=== PATIENT | female | born 1975 | race American Indian/Alaskan Native ===

== ENCOUNTER 2017-04-30 10:48 | Emergency (ER) | payer SELFPAY ==
--- NOTE | 2017-04-30 14:03 | Emergency Department Report ---
ED General Adult HPI - General Chief complaint: Upper Respiratory Infection Stated complaint: FLU LIKE SYMPTOMS Time Seen by Provider: 04/30/17 13:56 Source: patient Mode of arrival: Ambulatory Limitations: No Limitations - History of Present Illness Initial comments: Patient is a 41-year-old female most past medical history who presents with stuffy nose cough and nasal congestion going on for last couple days. Patient states that she is having throat pain and facial pain that is a 3 out of 10 she says is an achy type of pain in her last night and then she has nasal congestion and stuffy nose. Patient also states that she's been feeling hot and cold. Patient has not had a documented elevation in temperature however she feels like she has a fever. Patient has no nausea no vomiting. Nothing makes her symptoms better or worse. Patient works as a [employer]. - Related Data Previous Rx's Medication Instructions Recorded Last Taken Type Acetaminophen [Tylenol Extra 500 mg PO Q6H #30 tablet 04/30/17 Unknown Rx Strength] Amoxicillin [Amoxicillin TAB] 875 mg PO BID #10 tablet 04/30/17 Unknown Rx Allergies Allergy/AdvReac Type Severity Reaction Status Date / Time aspirin Allergy Unknown Verified 04/30/17 11:00 ED Review of Systems ROS: Stated complaint: FLU LIKE SYMPTOMS Other details as noted in HPI Constitutional: denies: chills, fever Eyes: denies: eye pain, eye discharge, vision change ENT: throat pain, congestion. denies: ear pain Respiratory: denies: cough, shortness of breath, wheezing Cardiovascular: denies: chest pain, palpitations Endocrine: no symptoms reported Gastrointestinal: denies: abdominal pain, nausea, diarrhea Genitourinary: denies: urgency, dysuria, discharge Musculoskeletal: denies: back pain, joint swelling, arthralgia Skin: denies: rash, lesions Neurological: denies: headache, weakness, paresthesias Psychiatric: denies: anxiety, depression Hematological/Lymphatic: denies: easy bleeding, easy bruising ED Past Medical Hx - Past Medical History Previous Medical History?: No - Surgical History Past Surgical History?: Yes Additional Surgical History: right foot surgery as a child - Social History Smoking Status: Never Smoker Substance Use Type: None - Medications Home Medications: Home Medications Medication Instructions Recorded Confirmed Last Taken Type Acetaminophen [Tylenol Extra 500 mg PO Q6H #30 tablet 04/30/17 Unknown Rx Strength] Amoxicillin [Amoxicillin TAB] 875 mg PO BID #10 tablet 04/30/17 Unknown Rx ED Physical Exam - General Limitations: No Limitations General appearance: alert, in no apparent distress - Head Head exam: Present: atraumatic, normocephalic - Eye Eye exam: Present: normal appearance - ENT ENT exam: Present: mucous membranes moist - Neck Neck exam: Present: normal inspection - Respiratory Respiratory exam: Present: normal lung sounds bilaterally. Absent: respiratory distress - Cardiovascular Cardiovascular Exam: Present: regular rate, normal rhythm. Absent: systolic murmur, diastolic murmur, rubs, gallop - GI/Abdominal GI/Abdominal exam: Present: soft, normal bowel sounds - Extremities Exam Extremities exam: Present: normal inspection - Back Exam Back exam: Present: normal inspection - Neurological Exam Neurological exam: Present: alert, oriented X3 - Psychiatric Psychiatric exam: Present: normal affect, normal mood - Skin Skin exam: Present: warm, dry, intact, normal color. Absent: rash ED Course Vital Signs 04/30/17 10:55 Temperature 98.9 F Pulse Rate 94 H Respiratory 18 Rate Blood Pressure 133/78 O2 Sat by Pulse 100 Oximetry ED Medical Decision Making - Medical Decision Making Cdx: Sinusitis ddx: Post nasal drip, URI I will send the patient home with tylenol and amoxicillin for her sinus infection. Discussed outpatient patient agrees with plan and additional verbal discharge instructions were given. Critical care attestation.: If time is entered above; I have spent that time in minutes in the direct care of this critically ill patient, excluding procedure time. ED Disposition Clinical Impression: Right-sided face pain Sinusitis Qualifiers: Sinusitis location: frontal Chronicity: acute Recurrence: non-recurrent Qualified Code(s): J01.10 - Acute frontal sinusitis, unspecified Disposition: DC-01 TO HOME OR SELFCARE Is pt being admited?: No Does the pt Need Aspirin: No Condition: Stable Instructions: Sinusitis (ED) Prescriptions: Acetaminophen [Tylenol Extra Strength] 500 mg PO Q6H #30 tablet Amoxicillin [Amoxicillin TAB] 875 mg PO BID #10 tablet Referrals: PRIMARY CAREMD [Primary Care Provider] - 3-5 Days GENE HODGE MD [Staff Physician] - 3-5 Days
[2017-04-30 14:23] VITALS: BP 124/89
[2017-04-30] MEDS ORDERED: TYLENOL PO ONE (14:25)
[2017-04-30] MEDS ORDERED: MOTRIN PO ONE (14:26)
== END 2017-04-30 14:13 | disposition home or self-care (01) ==
LOC: ED 10:48
DX: J32.9 Chronic sinusitis, unspecified (principal); Z79.82 Long term (current) use of aspirin
CPT/HCPCS: 99282